=== PATIENT | female | born 1950 | race Two or more races ===

== ENCOUNTER 2017-06-03 02:05 | Inpatient (IN) | payer MEDICARE, OTHER ==
[~2017-06-03] VITALS: Ht 162.6 cm; Wt 71.7 kg
[~2017-06-03 02:05] MED LIST: IMIP25TA6 PO; LISI10TA5 PO; METF10002 PO; ROBITUSSIN DM PO
--- NOTE | 2017-06-03 02:20 | NUR ---
PATIENT BIB WITH C/O FEELING DEPRESSED AND CRYING. PATIENT IS NON-BURMESE SPEAKING, TRANSLATES. PATIENT DENIES HOMICIDAL/SUICIDAL IDEATION AT THIS TIME.
--- NOTE | 2017-06-03 02:24 | NUR ---
DR. YOUNG AT BEDSIDE FOR MSE.
[2017-06-03] MEDS ORDERED: ASPI-605 PO (02:25)
[2017-06-03] MEDS ORDERED: PANT40TA4 PO (02:25)
[2017-06-03] MEDS ORDERED: FURO20TA4 PO (02:25)
[2017-06-03] MEDS ORDERED: CARV3.122 PO (02:25)
[2017-06-03] MEDS ORDERED: SAXA5TAB PO (02:25)
[2017-06-03 02:56] LABS: CARBON DIOXIDE 23 mmol/L (21-32); CREATININE 1.3 mg/dL (0.6-1.3); GLUCOSE 243 mg/dL (74-106); POTASSIUM 4.1 mmol/L (3.5-5.1); UREA NITROGEN, BLOOD 26 mg/dL (7-18)
[2017-06-03 02:57] LABS: ETHANOL < 3 MG/DL (0-0)
[2017-06-03 02:58] LABS: CHLORIDE 80 mmol/L (98-107)
[2017-06-03] MEDS ORDERED: IV NORMAL SALINE 500 ML BAG IV ONE (03:00)
[2017-06-03 03:01] LABS: ALANINE AMINOTRANSFERASE 395 U/L (14-59); ALKALINE PHOSPHATASE 238 U/L (50-136); ASPARTATE AMINOTRANSFERASE 65 U/L (15-37); BILIRUBIN,DIRECT 0.5 mg/dL (0.0-0.2); BILIRUBIN,TOTAL 1.2 mg/dL (0.2-1.0); TOTAL PROTEIN, SERUM 6.8 g/dL (6.4-8.2)
[2017-06-03 03:02] LABS: ACETAMINOPHEN < 2.0 ug/mL (10-30)
--- NOTE | 2017-06-03 03:05 | NUR ---
Pt. admitted to [facility] , under care of Sera DOBBS List completed. ASSIGNED TO BED 226.
[2017-06-03 03:10] LABS: BASOPHILS # (AUTO) 0.1 K/uL (0.0-8.0); EOSINOPHILS # (AUTO) 0.3 K/uL (0.0-0.7)
[2017-06-03 03:12] LABS: HEMOGLOBIN 11.3 G/DL (12.0-16.0)
[2017-06-03 03:13] LABS: BASOPHILS % (AUTO) 0.9 % (0.0-2.0); EOSINOPHILS % (AUTO) 3.1 % (0.0-7.0); HEMATOCRIT 34.7 % (37-47); LYMPHOCYTES # (AUTO) 1.7 K/UL (0.8-4.8); LYMPHOCYTES % (AUTO) 17.8 % (20.5-51.5); MEAN CORPUSCULAR HEMOGLOBIN 26.2 UUG (27.0-31.0); MEAN CORPUSCULAR HGB CONC 33 g/dL (32.0-37.0); MEAN CORPUSCULAR VOLUME 80.5 FL (81.0-99.0); MONOCYTES # (AUTO) 0.8 K/UL (0.1-1.30); MONOCYTES % (AUTO) 8.7 % (0.0-11.0); NEUTROPHILS # (AUTO) 6.7 K/UL (1.8-8.9); NEUTROPHILS % (AUTO) 69.5 % (38.5-71.5); PLATELET COUNT (AUTO) 380 K/UL (150-450); RED BLOOD CELL COUNT(AUTO) 4.31 MIL/UL (4.2-5.4); WHITE BLOOD COUNT (AUTO) 9.6 K/UL (4.0-11.2)
[2017-06-03] MEDS ORDERED: ONDANSETRON 4 MG/2 ML VIAL IV PRN (03:45)
[2017-06-03] MEDS ORDERED: IV NS 1000 ML 1,000 ML IV ONE (03:45)
[2017-06-03] MEDS ORDERED: Z GUARD REMEDY PASTE 57 GM TUBE TOP PRN (03:45)
[2017-06-03] MEDS ORDERED: HYDROCODONE/APAP 5-325MG TABLET PO PRN (03:45)
[2017-06-03] MEDS ORDERED: MAGNESIUM HYDROXIDE 30 ML LIQUID UDC PO PRN (03:45)
[2017-06-03] MEDS ORDERED: ACETAMINOPHEN 325 MG TABLET PO PRN (03:45)
--- NOTE | 2017-06-03 04:45 | NUR ---
ADMITTED IN TELE UNIT UNDER SHERYL KHAN NP, BELONGING LIST DONE.
[2017-06-03 05:09] VITALS: BP 116/64
[2017-06-03] MEDS ORDERED: HYDROCODONE/APAP 5-325MG TABLET ONE (06:04)
[2017-06-03 07:15] LABS: *BLOOD, URINE NEGATIVE (NEGATIVE); *CLARITY,URINE CLEAR (CLEAR); *COLOR,URINE YELLOW (YELLOW); *KETONES,URINE NEGATIVE (NEGATIVE); *PROTEIN,URINE 1+ (NEGATIVE); LEUKOCYTE ESTERASE ,URINE 3+ (NEGATIVE); NITRITE, URINE NEGATIVE (NEGATIVE); PH,URINE 5.5 (5.0-8.0); UGLUCOSE NEGATIVE (NEGATIVE)
[2017-06-03 07:32] LABS: *BILIRUBIN,URIN 1+ (NEGATIVE)
[2017-06-03 07:33] LABS: *AMPHETAMINE, URINE NEGATIVE (NEGATIVE); *BARBITURATE, URINE NEGATIVE (NEGATIVE); *CANNABINOID, URINE NEGATIVE (NEGATIVE); *COCCAINE, URINE NEGATIVE (NEGATIVE); *OPIATE, URINE NEGATIVE (NEGATIVE); *PHENCYCLIDINE SCREEN,URINE NEGATIVE (NEGATIVE)
[2017-06-03] MEDS: CARVEDILOL 3.125 MG TABLET PO SCH ×3 (08:00→18:16)
[2017-06-03 08:36] LABS: BACTERIA,URINE MODERATE /HPF (NONE SEEN); RBC,URINE 0-3 /HPF (0-3); SQUAMOUS EPITHELIAL CELL,UR MODERATE /HPF (NONE SEEN)
[2017-06-03 08:43] LABS: CREATININE 1.1 mg/dL (0.6-1.3); POTASSIUM 4.9 mmol/L (3.5-5.1)
[2017-06-03] MEDS: LISINOPRIL 10 MG TABLET PO SCH (09:00)
[2017-06-03] MEDS: PANTOPRAZOLE SODIUM 40 MG TABLET.DR PO SCH (09:41)
[2017-06-03] MEDS: ASPIRIN EC 81 MG TABLET.DR PO SCH (09:41)
[2017-06-03 12:04] VITALS: BP 115/74
[2017-06-03] MEDS: FUROSEMIDE 20 MG/2 ML VIAL IV SCH (12:07)
[2017-06-03] MEDS: CEFTRIAXONE 1 G in IV DEXTROSE 5% 50 ML IV SCH (12:16)
[2017-06-03 15:30] VITALS: BP 105/60
[2017-06-03 15:41] LABS: CREATININE 1.3 mg/dL (0.6-1.3); POTASSIUM 4.4 mmol/L (3.5-5.1)
[2017-06-03] MEDS ORDERED: DEXTROSE 50% 50 ML DISP.SYRIN IV PRN (18:00)
[2017-06-03] MEDS: BLOOD SUGAR DIAGNOSTIC 1 EACH STRIP VI SCH ×2 (18:15→22:53)
[2017-06-03] MEDS: INSULIN REGULAR, HUMAN 300 UNITS/3 ML VIAL SQ PRN (18:26)
--- NOTE | 2017-06-03 19:00 | NUR ---
Pt in room with at bedside alert and oriented x4. No s/s of acute distress. Able to ambulate with standby assistance. No c/o pain, headaches, or shortness of breathe. No s/s of hyper/hypoglycemia at this time. Call light placed within reach. Sinus rhythm with bundle branch.
--- NOTE | 2017-06-03 19:07 | NUR ---
PT. AMBULATING IN HALLWAY WITH SPOUSE THROUGHOUT THE DAY. SPOUSE REQUESTED PSYCH CONSULT DUE TO RECENT INCREASE IN DEPRESSION. PT. TOLERATED MEALS WELL. ACCU-CHECKS INITIATED AT DINNER TIME. SPOKE WITH DAUGHTER PER TELEPHONE REGARDING CARE PLAN. DR. DICKSON AWARE OF PSYCH CONSULT REQUEST. PT. IN NO ACUTE DISTRESS.
[2017-06-03 20:00] VITALS: BP 120/74
[2017-06-04] VITALS: BP 107/75
--- NOTE | 2017-06-04 01:00 | NUR ---
Pt asleep in room at this time. No s/s of acute distress. Sinus rhythm with wide QRS. at bedside. Continue to monitor.
[2017-06-04 04:00] VITALS: BP 114/74
[2017-06-04] MEDS: PANTOPRAZOLE SODIUM 40 MG TABLET.DR PO SCH (06:24)
[2017-06-04 06:42] LABS: CREATININE 1.1 mg/dL (0.6-1.3); MAGNESIUM 1.5 mg/dL (1.8-2.4); PHOSPHOROUS 3.6 mg/dL (2.5-4.9); TOTAL PROTEIN, SERUM 6.8 g/dL (6.4-8.2); URIC ACID 9.5 mg/dL (2.6-6.0)
[2017-06-04 06:43] LABS: THYROID STIMULATING HORMONE 5.779 mIU/mL (0.358-3.740)
[2017-06-04 07:20] LABS: BASOPHILS # (AUTO) 0.1 K/uL (0.0-8.0); EOSINOPHILS # (AUTO) 0.3 K/uL (0.0-0.7); HEMOGLOBIN 11.4 g/dL (10.9-14.3); LYMPHOCYTES # (AUTO) 1.9 K/uL (20.0-40.0); NEUTROPHILS # (AUTO) 2.6 K/uL (1.8-8.9)
[2017-06-04 07:26] LABS: BASOPHILS % (AUTO) 2.1 % (0.0-2.0); EOSINOPHILS % (AUTO) 5.7 % (0.0-7.0); HEMATOCRIT 34.1 % (31.2-41.9); LYMPHOCYTES % (AUTO) 33.8 % (20.5-51.5); MEAN CORPUSCULAR HEMOGLOBIN 26.8 uug (24.7-32.8); MEAN CORPUSCULAR HGB CONC 34 g/dL (32.3-35.6); MONOCYTES # (AUTO) 0.7 K/uL (2.0-10.0); MONOCYTES % (AUTO) 12.3 % (0.0-11.0); NEUTROPHILS % (AUTO) 46.1 % (38.5-71.5); PLATELET COUNT (AUTO) 293 K/uL (179-408); RED BLOOD CELL COUNT(AUTO) 4.27 MIL/uL (3.63-4.92)
[2017-06-04 07:29] LABS: WHITE BLOOD COUNT (AUTO) 5.7 K/uL (3.8-11.8)
[2017-06-04 10:00] VITALS: BP 124/84
[2017-06-04] MEDS: ASPIRIN EC 81 MG TABLET.DR PO SCH (10:31)
[2017-06-04] MEDS: CEFTRIAXONE 1 G in IV DEXTROSE 5% 50 ML IV SCH (10:31)
[2017-06-04] MEDS: LISINOPRIL 10 MG TABLET PO SCH (10:31)
[2017-06-04] MEDS: FUROSEMIDE 20 MG/2 ML VIAL IV SCH ×2 (10:31→22:27)
[2017-06-04] MEDS: CARVEDILOL 3.125 MG TABLET PO SCH ×2 (10:32→22:22)
[2017-06-04] MEDS: BLOOD SUGAR DIAGNOSTIC 1 EACH STRIP VI SCH ×3 (11:30→22:31)
[2017-06-04] MEDS: ALLOPURINOL 300 MG TABLET PO SCH ×2 (12:00→12:12)
[2017-06-04 12:08] VITALS: BP 135/78
[2017-06-04] MEDS: INSULIN REGULAR, HUMAN 300 UNIT/3 ML VIAL SQ PRN ×2 (12:31→16:47)
[2017-06-04 16:46] VITALS: BP 126/69
--- NOTE | 2017-06-04 18:12 | NUR ---
Family at bs, states no dr has spoken to them. No acute distress noted or voiced
[2017-06-04] MEDS: MAGNESIUM SULFATE/D5W 100 ML IV SCH (18:39)
[2017-06-04 19:30] VITALS: BP 113/69
--- NOTE | 2017-06-04 19:30 | NUR ---
RECEIVED PATIENT IN BED, ALERT ORIENTED, PREFER TO KEEP HOB ELEVATED, NO COMPLAIN OF PAIN NOTED, VOIDING FREELY, STATE "SHE FEELS BETTER".CONT TO MONITOR.
[2017-06-04] MEDS: TRAZODONE 50 MG TABLET PO SCH (22:22)
[2017-06-04] MEDS: INSULIN REGULAR, HUMAN 300 UNITS/3 ML VIAL SQ PRN (22:32)
[2017-06-04] MEDS ORDERED: FUROSEMIDE 20 MG/2 ML VIAL ONE (22:34)
[2017-06-05] MEDS: MAGNESIUM SULFATE/D5W 100 ML IV SCH (00:44)
[2017-06-05] MEDS ORDERED: MAGNESIUM SULFATE/D5W 100 ML ONE (00:55)
[2017-06-05 05:10] VITALS: BP 114/87
[2017-06-05] MEDS: PANTOPRAZOLE SODIUM 40 MG TABLET.DR PO SCH (06:17)
[2017-06-05] MEDS: BLOOD SUGAR DIAGNOSTIC 1 EACH STRIP VI SCH ×4 (06:29→21:06)
--- NOTE | 2017-06-05 06:58 | NUR ---
PATIENT SLEPT MOST OF THE NIGHT, VOIDING WELL, NO SOB NO CHEST PAIN NOTED, SWELLING OF LOWER EXTREMETY STILL PRESENT, SEEN BY TABLET REPAIR, WITH ORDER, SEEN BY DR. BETTENCOURT WITH ORDER, CONT TO MONITOR.
[2017-06-05] MEDS: SPIRONOLACTONE 25 MG TABLET PO SCH (09:17)
[2017-06-05] MEDS: ASPIRIN EC 81 MG TABLET.DR PO SCH (09:21)
[2017-06-05] MEDS: ALLOPURINOL 300 MG TABLET PO SCH (09:21)
[2017-06-05] MEDS: CARVEDILOL 3.125 MG TABLET PO SCH ×2 (09:22→20:00)
[2017-06-05] MEDS: SERTRALINE HCL 50 MG TABLET PO SCH (09:23)
[2017-06-05] MEDS: LISINOPRIL 10 MG TABLET PO SCH (09:23)
[2017-06-05] MEDS: FUROSEMIDE 20 MG/2 ML VIAL IV SCH ×2 (09:24→16:51)
[2017-06-05] MEDS: CEFTRIAXONE 1 G in IV DEXTROSE 5% 50 ML IV SCH (10:11)
[2017-06-05 11:18] VITALS: BP 116/73
[2017-06-05] MEDS ORDERED: MAGNESIUM CITRATE 296 ML BOTTLE PO ONE (11:45)
[2017-06-05] MEDS: INSULIN REGULAR, HUMAN 300 UNIT/3 ML VIAL SQ PRN (12:23)
[2017-06-05 15:10] VITALS: BP 108/71
[2017-06-05] MEDS: INSULIN REGULAR, HUMAN 300 UNITS/3 ML VIAL SQ PRN ×2 (17:29→21:14)
--- NOTE | 2017-06-05 19:35 | NUR ---
PATIENT UP, AMBULATE IN THE HALLWAYS ACCOMPANIED BY , NO SOB NO CHEST PAIN, NO COMPLAIN OF PAIN AT THIS TIME, PATIENT SEEMS HAS MORE ENERGY THIS EVENING, CONT TO MONITOR.
[2017-06-05 20:00] VITALS: BP 104/63
[2017-06-05] MEDS: TRAZODONE 50 MG TABLET PO SCH (21:05)
--- NOTE | 2017-06-05 21:16 | NUR ---
PATIENT REQUEST TO HOLD BP MEDS, STATED THAT HIS BP WAS LOW THIS MORNING, AND WANTING TO HOLD THE MEDICATION. RESPECT 'S REQUEST.
[2017-06-06 04:00] VITALS: BP 111/71
[2017-06-06] MEDS: PANTOPRAZOLE SODIUM 40 MG TABLET.DR PO SCH (06:05)
[2017-06-06] MEDS: BLOOD SUGAR DIAGNOSTIC 1 EACH STRIP VI SCH ×3 (06:06→21:35)
--- NOTE | 2017-06-06 06:59 | NUR ---
PATIENT AWAKE NO COMPLAIN OF PAIN AT THIS TIME, NO SOB NO CHEST PAIN, NOTED, RHYTHM SINUS RHYTHM AT THIS TIME. NO S/S OF HYPO/HYPERGLYCEMIA NOTED, VOIDING FREELY, HAS BM YESTERDAY PER , CONT TO MONITOR.
[2017-06-06] MEDS: SPIRONOLACTONE 25 MG TABLET PO SCH (10:04)
[2017-06-06] MEDS: FUROSEMIDE 20 MG TABLET PO SCH ×2 (10:04→17:58)
[2017-06-06] MEDS: ASPIRIN EC 81 MG TABLET.DR PO SCH (10:04)
[2017-06-06] MEDS: SERTRALINE HCL 50 MG TABLET PO SCH (10:04)
[2017-06-06] MEDS: ALLOPURINOL 300 MG TABLET PO SCH (10:05)
[2017-06-06] MEDS: CEFTRIAXONE 1 G in IV DEXTROSE 5% 50 ML IV SCH (10:06)
[2017-06-06] MEDS: LISINOPRIL 10 MG TABLET PO SCH (10:07)
[2017-06-06] MEDS: CARVEDILOL 3.125 MG TABLET PO SCH ×2 (10:08→20:00)
[2017-06-06 11:11] VITALS: BP 114/72
[2017-06-06 11:27] LABS: MEAN CORPUSCULAR VOLUME 79.7 FL (81.0-99.0)
[2017-06-06 11:29] LABS: BASOPHILS # (AUTO) 0.1 K/uL (0.0-8.0); BASOPHILS % (AUTO) 1.5 % (0.0-2.0); EOSINOPHILS # (AUTO) 0.3 K/uL (0.0-0.7); EOSINOPHILS % (AUTO) 4.2 % (0.0-7.0); HEMATOCRIT 32.9 % (37-47); HEMOGLOBIN 10.8 G/DL (12.0-16.0); LYMPHOCYTES # (AUTO) 1.4 K/UL (0.8-4.8); LYMPHOCYTES % (AUTO) 23.4 % (20.5-51.5); MEAN CORPUSCULAR HEMOGLOBIN 26.1 UUG (27.0-31.0); MEAN CORPUSCULAR HGB CONC 33 g/dL (32.0-37.0); MONOCYTES # (AUTO) 0.9 K/UL (0.1-1.30); MONOCYTES % (AUTO) 14.8 % (0.0-11.0); NEUTROPHILS # (AUTO) 3.5 K/UL (1.8-8.9); NEUTROPHILS % (AUTO) 56.1 % (38.5-71.5); PLATELET COUNT (AUTO) 349 K/UL (150-450); RED BLOOD CELL COUNT(AUTO) 4.13 MIL/UL (4.2-5.4); WHITE BLOOD COUNT (AUTO) 6.2 K/UL (4.0-11.2)
[2017-06-06 11:36] LABS: CREATININE 1.1 mg/dL (0.6-1.3); POTASSIUM 4.4 mmol/L (3.5-5.1)
[2017-06-06 11:41] LABS: BILIRUBIN,TOTAL 0.8 mg/dL (0.2-1.0); MAGNESIUM 1.6 mg/dL (1.8-2.4); TOTAL PROTEIN, SERUM 6.5 g/dL (6.4-8.2)
[2017-06-06] MEDS: INSULIN REGULAR, HUMAN 300 UNIT/3 ML VIAL SQ PRN ×2 (11:56→18:03)
--- NOTE | 2017-06-06 12:23 | NUR ---
08:00 PT RECEIVED IN ROOM NO DISTRESS AOX3 FOLLOWS COMMANDS AND DENIES PAIN. VSS. CONTINUES WITH ABT'S. 1130 TELE DISCONTINUED PER ORDER
[2017-06-06] MEDS: MAGNESIUM SULFATE/D5W 100 ML IV SCH ×4 (12:54→15:24)
[2017-06-06 15:16] VITALS: BP 95/58
--- NOTE | 2017-06-06 18:34 | NUR ---
18:30 PT RESTING WELL GIVEN MAG ORDERED. AOX3 AMBULATORY/ DENIES PAIN. URINE SPECIMEN COLLECTED. WILL CONTINUE TO MONITOR.
--- NOTE | 2017-06-06 19:30 | NUR ---
Received patient sitting on bed. No complaints of pain at this time. Son at bedside. Call light within reach. Will continue to monitor.
[2017-06-06 20:13] VITALS: BP 105/68
[2017-06-06] MEDS: TRAZODONE 50 MG TABLET PO SCH (21:17)
--- NOTE | 2017-06-06 23:55 | NUR ---
Patient complains of mild generalized pain. Requested Tylenol. Given as ordered. VS checked, WNL. Snacks provided as requested. Will continue to monitor.
[2017-06-07 06:54] VITALS: BP 103/66
[2017-06-07] MEDS: BLOOD SUGAR DIAGNOSTIC 1 EACH STRIP VI SCH ×3 (07:23→10:46)
[2017-06-07] MEDS: PANTOPRAZOLE SODIUM 40 MG TABLET.DR PO SCH (07:26)
[2017-06-07] MEDS: glipiZIDE 5 MG TABLET PO SCH ×2 (07:30→11:00)
--- NOTE | 2017-06-07 07:30 | NUR ---
RECEIVED PATIENT IN BED, ALERT ORIENTED, PREFER TO KEEP HOB ELEVATED, NO COMPLAIN OF PAIN NOTED, CALL LIGHT WITH IN REACH
--- NOTE | 2017-06-07 07:37 | NUR ---
Patient awake sitting on bed. BS taken at 0730-122. requests to hold BP and BS meds this morning. Relayed to day shift nurse. Due meds given. No s/s of acute distress. Frequent checks done. Call light within reach. Kept comfortable. Needs attended. Endorsed accordingly.
[2017-06-07] MEDS: CARVEDILOL 3.125 MG TABLET PO SCH (07:47)
[2017-06-07] MEDS: METFORMIN HCL 500 MG TABLET PO SCH ×2 (07:48→11:00)
[2017-06-07] MEDS: SERTRALINE HCL 50 MG TABLET PO SCH (08:02)
[2017-06-07] MEDS: ASPIRIN EC 81 MG TABLET.DR PO SCH (08:02)
[2017-06-07] MEDS: FUROSEMIDE 20 MG TABLET PO SCH (08:02)
[2017-06-07] MEDS: ALLOPURINOL 300 MG TABLET PO SCH (08:02)
[2017-06-07] MEDS: SPIRONOLACTONE 25 MG TABLET PO SCH (08:02)
[2017-06-07] MEDS: LISINOPRIL 10 MG TABLET PO SCH (08:03)
[2017-06-07] MEDS: CEFTRIAXONE 1 G in IV DEXTROSE 5% 50 ML IV SCH (08:23)
[2017-06-07 09:08] LABS: BILIRUBIN,TOTAL 0.9 mg/dL (0.2-1.0); CREATININE 1.2 mg/dL (0.6-1.3); MAGNESIUM 2.3 mg/dL (1.8-2.4); PHOSPHOROUS 3.9 mg/dL (2.5-4.9); POTASSIUM 4.4 mmol/L (3.5-5.1)
[2017-06-07 10:23] LABS: BASOPHILS % (AUTO) 0.1 % (0.0-2.0); EOSINOPHILS % (AUTO) 0.4 % (0.0-7.0); HEMATOCRIT 33.8 % (37-47); HEMOGLOBIN 10.9 G/DL (12.0-16.0); LYMPHOCYTES # (AUTO) 0.9 K/UL (0.8-4.8); LYMPHOCYTES % (AUTO) 9.8 % (20.5-51.5); MEAN CORPUSCULAR HEMOGLOBIN 26.1 UUG (27.0-31.0); MEAN CORPUSCULAR HGB CONC 32 g/dL (32.0-37.0); MEAN CORPUSCULAR VOLUME 80.9 FL (81.0-99.0); MONOCYTES # (AUTO) 0.7 K/UL (0.1-1.30); MONOCYTES % (AUTO) 7.5 % (0.0-11.0); NEUTROPHILS % (AUTO) 82.2 % (38.5-71.5); PLATELET COUNT (AUTO) 321 K/UL (150-450); RED BLOOD CELL COUNT(AUTO) 4.17 MIL/UL (4.2-5.4); WHITE BLOOD COUNT (AUTO) 9.6 K/UL (4.0-11.2)
[2017-06-07 10:56] LABS: *BILIRUBIN,URIN NEGATIVE (NEGATIVE); *BLOOD, URINE NEGATIVE (NEGATIVE); *CLARITY,URINE CLEAR (CLEAR); *COLOR,URINE YELLOW (YELLOW); *KETONES,URINE NEGATIVE (NEGATIVE); *PROTEIN,URINE NEGATIVE (NEGATIVE); *UROBILINOGEN,URINE 0.2 E.U./dl (NORMAL); LEUKOCYTE ESTERASE ,URINE NEGATIVE (NEGATIVE); NITRITE, URINE NEGATIVE (NEGATIVE); PH,URINE 5.5 (5.0-8.0)
[2017-06-07] MEDS: INSULIN REGULAR, HUMAN 300 UNIT/3 ML VIAL SQ PRN (11:04)
[2017-06-07 11:44] LABS: UGLUCOSE 1+ (NEGATIVE)
[2017-06-07] MEDS ORDERED: INFLUENZA VACCINE 2017-2018 0.5 ML DISP.SYRIN IM ONE (12:00)
[2017-06-07 12:04] LABS: BACTERIA,URINE FEW /HPF (NONE SEEN); RBC,URINE 0-3 /HPF (0-3); SQUAMOUS EPITHELIAL CELL,UR MODERATE /HPF (NONE SEEN); WBC,URINE 0-3 /HPF (0-3)
[2017-06-07 12:08] VITALS: BP 114/75
[2017-06-07 13:39] LABS: BAND % (MANUAL) 8 % (0-10); EOSINOPHILS % (MANUAL) 1 % (0-8); LYMPHOCYTES % (MANUAL) 7 % (20-40); MONOCYTES % (MANUAL) 3 % (2-10); NEUTROPHILS % (MANUAL) 81 % (42-75)
[2017-06-07] MEDS ORDERED: FURO20TA4 PO (15:43)
[2017-06-07] MEDS ORDERED: ALLO300T2 PO (15:43)
[2017-06-07] MEDS ORDERED: SPIR25TA PO (15:43)
[2017-06-07] MEDS ORDERED: TRAZ-144 PO (15:43)
[2017-06-07] MEDS ORDERED: LISI10TA5 PO (15:43)
[2017-06-07] MEDS ORDERED: SERT50TA12 PO (15:43)
[2017-06-07] MEDS ORDERED: CARV3.122 PO (15:43)
[2017-06-07 16:04] VITALS: BP 100/66
--- NOTE | 2017-06-07 16:12 | NUR ---
D/C ORDERS RECEIVED NOTED AND CARRIED OUT.D/C INSTRUCTIONS AND EDUCATIONS GIVEN TO THE PT.D/C HE[place]OCK PER MD ORDERS.PT LEFT THE FACILITY VIA PRIVATE CAR IN STABLE CONDITIONS.
== END 2017-06-07 16:15 | disposition home health service (06) | DRG 291 ==
LOC: ER 02:13 → TELE 03:05 → MED 06-06 11:55
PROVIDERS: ADMIT Nurse Practitioner Acute Care; ATTEND Internal Medicine
DX: I11.0 Hypertensive heart disease with heart failure (principal); G93.40 Encephalopathy, unspecified; N17.0 Acute kidney failure with tubular necrosis; E86.1 Hypovolemia; J90 Pleural effusion, not elsewhere classified; D68.59 Other primary thrombophilia; E11.65 Type 2 diabetes mellitus with hyperglycemia; E87.1 Hypo-osmolality and hyponatremia; N39.0 Urinary tract infection, site not specified; I50.23 Acute on chronic systolic (congestive) heart failure; I42.9 Cardiomyopathy, unspecified; I36.1 Nonrheumatic tricuspid (valve) insufficiency; Z85.3 Personal history of malignant neoplasm of breast; Z90.11 Acquired absence of right breast and nipple; I34.0 Nonrheumatic mitral (valve) insufficiency; I35.1 Nonrheumatic aortic (valve) insufficiency; R74.0 Nonspecific elevation of levels of transaminase and lactic acid dehydrogenase [LDH]; K56.41 Fecal impaction; F32.9 Major depressive disorder, single episode, unspecified; K76.1 Chronic passive congestion of liver; Z79.84 Long term (current) use of oral hypoglycemic drugs; Z79.899 Other long term (current) drug therapy; D50.9 Iron deficiency anemia, unspecified; I27.20 Pulmonary hypertension, unspecified; R53.1 Weakness
CPT/HCPCS: 36415; 70450; 71010; 71250; 80307; 82378; 83550; 83735; 84100; 84300; 84443; 84550; 85025; 87086; 90686; 93005; 93307; A4663; G0480; G0480-TC; J0696; J1815; J1940; J3475; J7030; J7050; J7060

== ENCOUNTER 2017-09-01 07:27 | Emergency (ER) | END 2017-09-01 08:25 | disposition home or self-care (01) | DX: R04.0 Epistaxis (principal); I10 Essential (primary) hypertension; E11.9 Type 2 diabetes mellitus without complications ==

== ENCOUNTER 2017-09-28 20:11 | Inpatient (IN) | payer MEDICARE, OTHER ==
[~2017-09-28] VITALS: Ht 157.5 cm; Wt 52.6 kg
[~2017-09-28 20:11] MED LIST changes: +ALLO300T2 PO; +ASPI-605 PO; +CARV3.122 PO; +FURO20TA4 PO; -IMIP25TA6 PO; +PANT40TA4 PO; -ROBITUSSIN DM PO; +SAXA5TAB PO; +SERT50TA12 PO; +SPIR25TA PO; +TRAZ-144 PO
[2017-09-28] MEDS ORDERED: SIMBRINZA (20:44)
[2017-09-28] MEDS ORDERED: EYE (20:44)
[2017-09-28] MEDS ORDERED: LATANOPROST 0.005% (20:44)
[2017-09-28 21:33] LABS: POTASSIUM 4.7 mmol/L (3.5-5.1)
[2017-09-28 21:38] LABS: BILIRUBIN,DIRECT 0.3 mg/dL (0.0-0.2); BILIRUBIN,TOTAL 0.9 mg/dL (0.2-1.0); TOTAL PROTEIN, SERUM 7.5 g/dL (6.4-8.2)
[2017-09-28 21:41] LABS: BASOPHILS # (AUTO) 0.1 K/uL (0.0-8.0); EOSINOPHILS # (AUTO) 0.4 K/uL (0.0-0.7); MEAN CORPUSCULAR VOLUME 66.7 fL (75.5-95.3); MONOCYTES # (AUTO) 0.9 K/uL (2.0-10.0); NEUTROPHILS # (AUTO) 4.7 K/uL (1.8-8.9)
[2017-09-28 21:43] LABS: BASOPHILS % (AUTO) 1.2 % (0.0-2.0); EOSINOPHILS % (AUTO) 5.4 % (0.0-7.0); HEMATOCRIT 22.8 % (31.2-41.9); LYMPHOCYTES # (AUTO) 1.3 K/uL (20.0-40.0); LYMPHOCYTES % (AUTO) 17.8 % (20.5-51.5); MEAN CORPUSCULAR HEMOGLOBIN 20.3 uug (24.7-32.8); MEAN CORPUSCULAR HGB CONC 30 g/dL (32.3-35.6); MONOCYTES % (AUTO) 11.6 % (0.0-11.0); PLATELET COUNT (AUTO) 346 K/uL (179-408); RED BLOOD CELL COUNT(AUTO) 3.41 MIL/uL (3.63-4.92); WHITE BLOOD COUNT (AUTO) 7.4 K/uL (3.8-11.8)
[2017-09-28 22:16] LABS: HEMOGLOBIN 6.9 g/dL (10.9-14.3)
[2017-09-28 22:17] LABS: NEUTROPHILS % (MANUAL) 0 % (42-75)
--- NOTE | 2017-09-28 23:08 | NUR ---
Passed report to JUDY Caldera
[2017-09-28] MEDS ORDERED: PANTOPRAZOLE SODIUM 40 MG VIAL IV ONE (23:15)
[2017-09-28 23:20] LABS: *BILIRUBIN,URIN NEGATIVE (NEGATIVE); *BLOOD, URINE NEGATIVE (NEGATIVE); *CLARITY,URINE CLEAR (CLEAR); *COLOR,URINE YELLOW (YELLOW); *KETONES,URINE NEGATIVE (NEGATIVE); *PROTEIN,URINE NEGATIVE (NEGATIVE); LEUKOCYTE ESTERASE ,URINE 1+ (NEGATIVE); NITRITE, URINE NEGATIVE (NEGATIVE); PH,URINE 6.5 (5.0-8.0); UGLUCOSE NEGATIVE (NEGATIVE)
[2017-09-28 23:29] LABS: BACTERIA,URINE FEW /HPF (NONE SEEN); RBC,URINE 0-3 /HPF (0-3); SQUAMOUS EPITHELIAL CELL,UR MODERATE /HPF (NONE SEEN)
[2017-09-28] MEDS ORDERED: PANTOPRAZOLE SODIUM 40 MG VIAL ONE (23:31)
[2017-09-29] VITALS (18 sets, daily range): BP systolic 100–173; BP diastolic 42–98
[2017-09-29] MEDS ORDERED: ALBUTEROL SULFATE 2.5 MG/3 ML NEBU NEB PRN
[2017-09-29] MEDS ORDERED: ACETAMINOPHEN 325 MG TABLET PO PRN
[2017-09-29] MEDS ORDERED: MORPHINE SULFATE 2 MG/1 ML DISP.SYRIN IV PRN
[2017-09-29] MEDS ORDERED: ONDANSETRON 4 MG/2 ML VIAL IV PRN
--- NOTE | 2017-09-29 00:15 | NUR ---
RECEIVED PT FROM ER BY A WHEELCHAIR. PT IS AWAKE , ALERT ORIENTEDX4. PT ADMITTED TO TELE. BELONGING LIST DONE. ADMISSION PROCESS AND CARE PLAN INITIATED, NEW ADMISSION. SAFETY AND COMFORT PROVIDED. CALL LIGHT WITHIN REACH. WILL CONTINUE TO MONITOR.
--- NOTE | 2017-09-29 06:46 | NUR ---
PT WAS GIVEN 1 UNIT OF BLOOD. PT TOLERATED THE TRANSFUSION. PT SHOWS NO SIGNS OF DISTRESS. ON BEDSIDE. SAFETY AND COMFORT PROVIDED.
[2017-09-29] MEDS: PANTOPRAZOLE SODIUM 40 MG TABLET.DR PO SCH (07:00)
--- NOTE | 2017-09-29 07:18 | NUR ---
ENDORSE TO NEXT SHIFT NURSE FOR THE 1 UNIT OF BLOOD. IT IS BECAUSE WE NEED TO CHANGE THE IV SITE TO LEFT ARM 20G. PT SHOWS NO SIGNS OF DISTRESS.
[2017-09-29] MEDS ORDERED: MORPHINE SULFATE 4 MG/1 ML DISP.SYRIN IV PRN (07:30)
[2017-09-29] MEDS: FUROSEMIDE 20 MG/2 ML VIAL IV SCH (09:16)
[2017-09-29 09:52] LABS: BILIRUBIN,TOTAL 1.2 mg/dL (0.2-1.0); CREATININE 0.7 mg/dL (0.6-1.3); MAGNESIUM 1.8 mg/dL (1.8-2.4); PHOSPHOROUS 3.2 mg/dL (2.5-4.9); POTASSIUM 3.7 mmol/L (3.5-5.1); TOTAL PROTEIN, SERUM 6.5 g/dL (6.4-8.2)
[2017-09-29 09:53] LABS: THYROID STIMULATING HORMONE 7.451 mIU/mL (0.358-3.740)
[2017-09-29 09:56] LABS: BASOPHILS # (AUTO) 0.1 K/uL (0.0-8.0); BASOPHILS % (AUTO) 1.7 % (0.0-2.0); EOSINOPHILS # (AUTO) 0.3 K/uL (0.0-0.7); EOSINOPHILS % (AUTO) 6.5 % (0.0-7.0); LYMPHOCYTES % (AUTO) 18.1 % (20.5-51.5); MEAN CORPUSCULAR HEMOGLOBIN 21.8 uug (24.7-32.8); MEAN CORPUSCULAR HGB CONC 31 g/dL (32.3-35.6); MEAN CORPUSCULAR VOLUME 70.2 fL (75.5-95.3); MONOCYTES # (AUTO) 0.6 K/uL (2.0-10.0); MONOCYTES % (AUTO) 11.8 % (0.0-11.0); NEUTROPHILS # (AUTO) 3.3 K/uL (1.8-8.9); NEUTROPHILS % (AUTO) 61.9 % (38.5-71.5); PLATELET COUNT (AUTO) 299 K/uL (179-408); RED BLOOD CELL COUNT(AUTO) 3.71 MIL/uL (3.63-4.92); WHITE BLOOD COUNT (AUTO) 5.3 K/uL (3.8-11.8)
[2017-09-29 10:01] LABS: HEMOGLOBIN 8.1 g/dL (10.9-14.3)
[2017-09-29 12:44] LABS: BAND % (MANUAL) 2 % (0-10); BASOPHILS % (MANUAL) 1 % (0-2); EOSINOPHILS % (MANUAL) 7 % (0-8); LYMPHOCYTES % (MANUAL) 19 % (20-40); MONOCYTES % (MANUAL) 10 % (2-10); NEUTROPHILS % (MANUAL) 61 % (42-75)
[2017-09-29] MEDS ORDERED: DEXTROSE 50% 50 ML DISP.SYRIN IV PRN (13:15)
--- NOTE | 2017-09-29 13:39 | NUR ---
PT GIVEN SECOND UNIT OF BLOOD, NO REACTION TO SECOND UNIT. PT VITALS STABLE. NO SIGNS OF RESPIRATORY DISTRESS.
[2017-09-29] MEDS ORDERED: FUROSEMIDE 20 MG/2 ML VIAL IV ONE (14:15)
[2017-09-29] MEDS: CEFTRIAXONE 1 G in IV DEXTROSE 5% 50 ML IV SCH (14:26)
[2017-09-29 15:27] LABS: BASOPHILS # (AUTO) 0.1 K/uL (0.0-8.0); BASOPHILS % (AUTO) 1.6 % (0.0-2.0); EOSINOPHILS # (AUTO) 0.4 K/uL (0.0-0.7); EOSINOPHILS % (AUTO) 5.8 % (0.0-7.0); LYMPHOCYTES # (AUTO) 1.1 K/uL (20.0-40.0); LYMPHOCYTES % (AUTO) 16.4 % (20.5-51.5); MEAN CORPUSCULAR HEMOGLOBIN 22.9 uug (24.7-32.8); MEAN CORPUSCULAR HGB CONC 32 g/dL (32.3-35.6); MEAN CORPUSCULAR VOLUME 72.2 fL (75.5-95.3); MONOCYTES # (AUTO) 0.8 K/uL (2.0-10.0); MONOCYTES % (AUTO) 11.5 % (0.0-11.0); NEUTROPHILS # (AUTO) 4.4 K/uL (1.8-8.9); NEUTROPHILS % (AUTO) 64.7 % (38.5-71.5); PLATELET COUNT (AUTO) 322 K/uL (179-408); RED BLOOD CELL COUNT(AUTO) 4.64 MIL/uL (3.63-4.92); WHITE BLOOD COUNT (AUTO) 6.8 K/uL (3.8-11.8)
[2017-09-29 15:31] LABS: HEMOGLOBIN 10.6 g/dL (10.9-14.3)
[2017-09-29 15:32] LABS: HEMATOCRIT 33.5 % (31.2-41.9)
[2017-09-29] MEDS ORDERED: CARVEDILOL 3.125 MG TABLET PO SCH (16:30)
[2017-09-29] MEDS: BLOOD SUGAR DIAGNOSTIC 1 EACH STRIP VI SCH ×2 (16:47→21:18)
[2017-09-29] MEDS ORDERED: FUROSEMIDE 20 MG TABLET PO SCH (17:00)
[2017-09-29] MEDS: CARVEDILOL 6.25 MG TABLET PO SCH ×2 (17:01→17:02)
--- NOTE | 2017-09-29 17:22 | NUR ---
DOUBLE ORDER OF COREG. ONE ONE DOSE GIVEN. THE OTHER HELD.
--- NOTE | 2017-09-29 18:13 | NUR ---
PT OBSERVED RESTING IN BED WITH AT BEDSIDE. NO SIGNS OF RESPIRATORY DISTRESS, VITALS STABLE, PT ON A CLEAR LIQUID DIET. STOOL SAMPLE STILL NEEDED, PT HAS NOT HAD A BM TODAY. IV SITE IS ON LEFT ARM. NO BP,IV, OR BLOOD DRAWS ON THE RIGHT ARM.
[2017-09-29] MEDS: TRAZODONE 50 MG TABLET PO SCH (20:48)
[2017-09-29] MEDS: INSULIN REGULAR, HUMAN 300 UNITS/3 ML VIAL SQ PRN (21:22)
[2017-09-30 04:00] VITALS: BP 125/71
[2017-09-30] MEDS: PANTOPRAZOLE SODIUM 40 MG TABLET.DR PO SCH (06:28)
[2017-09-30] MEDS: BLOOD SUGAR DIAGNOSTIC 1 EACH STRIP VI SCH ×4 (06:34→20:26)
[2017-09-30 06:57] LABS: BASOPHILS # (AUTO) 0.1 K/uL (0.0-8.0); BASOPHILS % (AUTO) 1.4 % (0.0-2.0); EOSINOPHILS # (AUTO) 0.6 K/uL (0.0-0.7); EOSINOPHILS % (AUTO) 7.8 % (0.0-7.0); HEMATOCRIT 32.2 % (31.2-41.9); HEMOGLOBIN 10.4 g/dL (10.9-14.3); LYMPHOCYTES % (AUTO) 12.8 % (20.5-51.5); MEAN CORPUSCULAR HEMOGLOBIN 23.2 uug (24.7-32.8); MEAN CORPUSCULAR HGB CONC 32 g/dL (32.3-35.6); MONOCYTES # (AUTO) 0.9 K/uL (2.0-10.0); MONOCYTES % (AUTO) 11.4 % (0.0-11.0); NEUTROPHILS # (AUTO) 5.1 K/uL (1.8-8.9); NEUTROPHILS % (AUTO) 66.6 % (38.5-71.5); PLATELET COUNT (AUTO) 332 K/uL (179-408); RED BLOOD CELL COUNT(AUTO) 4.47 MIL/uL (3.63-4.92); WHITE BLOOD COUNT (AUTO) 7.6 K/uL (3.8-11.8)
[2017-09-30 07:54] LABS: CREATININE 0.8 mg/dL (0.6-1.3); POTASSIUM 3.5 mmol/L (3.5-5.1)
[2017-09-30] MEDS: CARVEDILOL 6.25 MG TABLET PO SCH ×3 (08:00→18:05)
[2017-09-30] MEDS: SPIRONOLACTONE 25 MG TABLET PO SCH (08:29)
[2017-09-30] MEDS: ALLOPURINOL 300 MG TABLET PO SCH (08:29)
[2017-09-30] MEDS: SERTRALINE HCL 50 MG TABLET PO SCH (08:29)
[2017-09-30] MEDS: LISINOPRIL 5 MG TABLET PO SCH (08:31)
[2017-09-30] MEDS: FUROSEMIDE 20 MG/2 ML VIAL IV SCH (08:33)
--- NOTE | 2017-09-30 08:50 | NUR ---
COREG, ALDACTONE, PRINIVIL HELD, DOUBLE ORDER OF MEDICATIONS. PHARMACY NOTIFIED.
[2017-09-30] MEDS ORDERED: SPIRONOLACTONE 25 MG TABLET PO SCH (09:00)
[2017-09-30] MEDS ORDERED: PANTOPRAZOLE SODIUM 40 MG TABLET.DR PO SCH (09:00)
[2017-09-30] MEDS ORDERED: LISINOPRIL 5 MG TABLET PO SCH (09:00)
[2017-09-30] MEDS ORDERED: LISINOPRIL 10 MG TABLET PO SCH (09:00)
[2017-09-30 11:14] LABS: BAND % (MANUAL) 2 % (0-10); EOSINOPHILS % (MANUAL) 6 % (0-8); LYMPHOCYTES % (MANUAL) 9 % (20-40); MONOCYTES % (MANUAL) 11 % (2-10); NEUTROPHILS % (MANUAL) 72 % (42-75)
[2017-09-30 11:30] VITALS: BP 113/53
[2017-09-30 12:55] LABS: *OCCULT BLOOD STOOL NEGATIVE (NEGATIVE)
[2017-09-30] MEDS: CEFTRIAXONE 1 G in IV DEXTROSE 5% 50 ML IV SCH (14:49)
[2017-09-30 15:30] VITALS: BP 122/71
--- NOTE | 2017-09-30 18:32 | NUR ---
PT STOOL OB WAS NEGATIVE, PT GIVEN SOLID DIABETIC DIET PER CORRECTIONS OFFICER ORDER. PT IS IN BED AWAKE AOX4 FAMILY AT BEDSIDE. PT SHOWS NO SIGNS OF RESPIRATORY DISTRESS. STABLE. CONTINUE TO MONITOR.
--- NOTE | 2017-09-30 19:30 | NUR ---
RECEIVED PT ON BED. AWAKE, ALERT AND ORIENTED X 4. ON BEDSIDE. IV INTACT AND PATENT. SHOWS NO SIGNS OF DISTRESS. CALL LIGHT WITHIN REACH. BED ALARM ON. WILL CONTINUE TO MONITOR.
--- NOTE | 2017-09-30 19:35 | NUR ---
PT CHART SHOWS SUICIDE BUT ITS JUST HUMAN ERROR. DON'T KNOW HOW TO CANCEL AND EDIT IT. PT SHOWS NO SIGNS OF DISTRESS. WILL CONTINUE TO MONITOR.
[2017-09-30 20:00] VITALS: BP 101/54
[2017-09-30] MEDS: TRAZODONE 50 MG TABLET PO SCH (20:25)
[2017-09-30] MEDS: INSULIN REGULAR, HUMAN 300 UNITS/3 ML VIAL SQ PRN (20:32)
--- NOTE | 2017-10-01 06:30 | NUR ---
PT SLEPT THROUGHOUT THE SHIFT. PT SHOWS NO SIGNS OF DISTRESS. ENDORSE TO DAY SHIFT NURSE TO GET THE RECORD FROM [facility] INCLUDING CT SCAN. PT VITAL SIGNS STABLE. PRESCRIBED MEDICATION GIVEN TO PT. PT TOLERATED THE MEDICATION. SAFETY AND COMFORT PROVIDED.
[2017-10-01] MEDS: BLOOD SUGAR DIAGNOSTIC 1 EACH STRIP VI SCH ×4 (06:35→20:19)
[2017-10-01] MEDS: PANTOPRAZOLE SODIUM 40 MG TABLET.DR PO SCH (06:35)
[2017-10-01 06:55] VITALS: BP 118/70
[2017-10-01] MEDS: CARVEDILOL 6.25 MG TABLET PO SCH ×2 (07:05→17:06)
--- NOTE | 2017-10-01 07:43 | NUR ---
RECEIVED PT ON BED. AWAKE, ALERT AND ORIENTED X 4. . IV INTACT AND PATENT. SHOWS NO SIGNS OF DISTRESS. CALL LIGHT WITHIN REACH. BED ALARM ON. WILL CONTINUE TO MONITOR.
[2017-10-01] MEDS: SPIRONOLACTONE 25 MG TABLET PO SCH (08:02)
[2017-10-01] MEDS: ALLOPURINOL 300 MG TABLET PO SCH (08:02)
[2017-10-01] MEDS: SERTRALINE HCL 50 MG TABLET PO SCH (08:02)
[2017-10-01] MEDS: LISINOPRIL 5 MG TABLET PO SCH (08:02)
[2017-10-01] MEDS: FUROSEMIDE 20 MG/2 ML VIAL IV SCH (08:15)
[2017-10-01 11:27] LABS: BASOPHILS # (AUTO) 0.1 K/uL (0.0-8.0); BASOPHILS % (AUTO) 1.6 % (0.0-2.0); EOSINOPHILS # (AUTO) 0.5 K/uL (0.0-0.7); EOSINOPHILS % (AUTO) 6.4 % (0.0-7.0); HEMATOCRIT 31.3 % (31.2-41.9); HEMOGLOBIN 9.9 g/dL (10.9-14.3); LYMPHOCYTES # (AUTO) 0.9 K/uL (20.0-40.0); MEAN CORPUSCULAR HEMOGLOBIN 22.9 uug (24.7-32.8); MEAN CORPUSCULAR HGB CONC 32 g/dL (32.3-35.6); MEAN CORPUSCULAR VOLUME 72.1 fL (75.5-95.3); MONOCYTES # (AUTO) 0.7 K/uL (2.0-10.0); MONOCYTES % (AUTO) 9.3 % (0.0-11.0); NEUTROPHILS # (AUTO) 5.4 K/uL (1.8-8.9); NEUTROPHILS % (AUTO) 70.7 % (38.5-71.5); PLATELET COUNT (AUTO) 337 K/uL (179-408); RED BLOOD CELL COUNT(AUTO) 4.33 MIL/uL (3.63-4.92); WHITE BLOOD COUNT (AUTO) 7.6 K/uL (3.8-11.8)
[2017-10-01] MEDS: INSULIN REGULAR, HUMAN 300 UNIT/3 ML VIAL SQ PRN (11:27)
[2017-10-01 11:42] VITALS: BP 113/62
[2017-10-01] MEDS: CEFTRIAXONE 1 G in IV DEXTROSE 5% 50 ML IV SCH (13:47)
[2017-10-01 15:25] VITALS: BP 106/60
--- NOTE | 2017-10-01 19:15 | NUR ---
RECEIVED PT AWAKE ,ALERT, ORIENTED X4. ON BEDSIDE. WANTS TO SPEAK WITH THE DR IN CHARGE. AT BEDSIDE.IV INTACT AND PATENT.RECENT BLOOD SUGAR TAKEN FROM DAYSHIFT NURSE WAS 73. NEED TO RECHECKED AGAIN . WILL CONTINUE TO MONITOR.
[2017-10-01 19:59] LABS: BAND % (MANUAL) 4 % (0-10); EOSINOPHILS % (MANUAL) 6 % (0-8); LYMPHOCYTES % (MANUAL) 14 % (20-40); MONOCYTES % (MANUAL) 9 % (2-10); NEUTROPHILS % (MANUAL) 67 % (42-75)
[2017-10-01] MEDS: TRAZODONE 50 MG TABLET PO SCH (20:14)
[2017-10-01 20:15] VITALS: BP 118/69
--- NOTE | 2017-10-01 21:00 | NUR ---
BLOOD SUGAR TAKEN WAS 80. NO INSULIN PER SLIDING SCALE. GAVE ORANGE JUICE TO KEEP THE BLOOD SUGAR LEVEL UP. WILL CONTINUE TO MONITOR.
[2017-10-02] MEDS: LEVOFLOXACIN 500 MG TABLET PO SCH (01:48)
[2017-10-02 04:47] VITALS: BP 125/69
[2017-10-02] MEDS: PANTOPRAZOLE SODIUM 40 MG TABLET.DR PO SCH (06:09)
--- NOTE | 2017-10-02 06:19 | NUR ---
PT SLEPT THROUGHOUT THE SHIFT . PT STABLE. IV INTACT AND PATENT. BEDSIDE ALARM ON AND IN LOW POSITION. CALL LIGHT WITHIN REACH. PRESCRIBED MEDICATIONS GIVEN AND TOLERATED. BLOOD SUGAR LEVEL IS 77. SAFETY AND COMFORT PROVIDED.
[2017-10-02 06:28] LABS: BASOPHILS # (AUTO) 0.1 K/uL (0.0-8.0); BASOPHILS % (AUTO) 1.4 % (0.0-2.0); EOSINOPHILS # (AUTO) 0.7 K/uL (0.0-0.7); EOSINOPHILS % (AUTO) 9.6 % (0.0-7.0); HEMATOCRIT 31.6 % (31.2-41.9); HEMOGLOBIN 9.8 g/dL (10.9-14.3); LYMPHOCYTES # (AUTO) 1.1 K/uL (20.0-40.0); LYMPHOCYTES % (AUTO) 14.5 % (20.5-51.5); MEAN CORPUSCULAR HEMOGLOBIN 22.6 uug (24.7-32.8); MEAN CORPUSCULAR HGB CONC 31 g/dL (32.3-35.6); MEAN CORPUSCULAR VOLUME 72.7 fL (75.5-95.3); MONOCYTES # (AUTO) 0.8 K/uL (2.0-10.0); MONOCYTES % (AUTO) 10.5 % (0.0-11.0); NEUTROPHILS # (AUTO) 4.9 K/uL (1.8-8.9); PLATELET COUNT (AUTO) 335 K/uL (179-408); RED BLOOD CELL COUNT(AUTO) 4.35 MIL/uL (3.63-4.92); WHITE BLOOD COUNT (AUTO) 7.6 K/uL (3.8-11.8)
[2017-10-02 06:33] LABS: CREATININE 0.7 mg/dL (0.6-1.3); POTASSIUM 4.1 mmol/L (3.5-5.1)
[2017-10-02] MEDS: BLOOD SUGAR DIAGNOSTIC 1 EACH STRIP VI SCH ×4 (07:21→20:38)
[2017-10-02 07:28] LABS: EOSINOPHILS % (MANUAL) 7 % (0-8); LYMPHOCYTES % (MANUAL) 14 % (20-40); MONOCYTES % (MANUAL) 9 % (2-10); NEUTROPHILS % (MANUAL) 70 % (42-75)
[2017-10-02] MEDS: SERTRALINE HCL 50 MG TABLET PO SCH (08:03)
[2017-10-02] MEDS: ALLOPURINOL 300 MG TABLET PO SCH (08:03)
[2017-10-02] MEDS: LISINOPRIL 5 MG TABLET PO SCH (08:04)
[2017-10-02] MEDS: SPIRONOLACTONE 25 MG TABLET PO SCH (08:04)
[2017-10-02] MEDS: CARVEDILOL 6.25 MG TABLET PO SCH ×2 (08:04→17:15)
[2017-10-02] MEDS: FUROSEMIDE 20 MG/2 ML VIAL IV SCH (08:07)
--- NOTE | 2017-10-02 11:00 | NUR ---
PT SEEN BY GASTROLOGIST NEW ORDERS RECEIVED AND NOTED.
[2017-10-02] MEDS ORDERED: GOLYTELY 4000 ML BOTTLE PO ONE (11:15)
[2017-10-02] MEDS ORDERED: MAGNESIUM CITRATE 296 ML BOTTLE PO ONE (11:15)
[2017-10-02] MEDS ORDERED: BISACODYL 5 MG TABLET.DR PO ONE (11:15)
[2017-10-02 11:28] VITALS: BP 111/66
[2017-10-02] MEDS: INSULIN REGULAR, HUMAN 300 UNIT/3 ML VIAL SQ PRN ×2 (11:32→20:47)
[2017-10-02 12:09] LABS: CANCER ANTIGEN 15-3 18.7 U/mL (0.0-25.0)
[2017-10-02] MEDS: CYANOCOBALAMIN 1000 MCG/ML VIAL IM SCH (12:58)
[2017-10-02 15:46] VITALS: BP 107/53
[2017-10-02] MEDS: SOD FERRIC GLUC COMPLX/SUCROSE 125 MG in IV NORMAL SALINE 100 ML IV SCH (15:49)
--- NOTE | 2017-10-02 19:30 | NUR ---
Received patient laying comfortably in bed. No acute distress noted. Patient is speaking but understands little Lithuanian. She is able to make needs know. Patient is ambulatory. Instructed patient to continue to drink the golytely 4 L. Room is kept clutter free. Bed is in low and locked position. Safety initiated. Call light within reach. Will continue to monitor.
[2017-10-02 20:00] VITALS: BP 108/58
[2017-10-02] MEDS: TRAZODONE 50 MG TABLET PO SCH (20:36)
[2017-10-02] MEDS ORDERED: IV D5W-0.45% NS +20 KCL 1,000 ML IV ONE (22:00)
[2017-10-03] MEDS: LEVOFLOXACIN 500 MG TABLET PO SCH (00:07)
[2017-10-03 04:00] VITALS: BP 129/61
--- NOTE | 2017-10-03 05:00 | NUR ---
Tap water enema administered. Tolerated well.
--- NOTE | 2017-10-03 06:10 | NUR ---
Patient slept intermittently t/o shift. IVF infusing. Multiple bowel movements d/t golytely. ambulates to the restroom herself. Room is kept clutter free. Bed is in low and locked position. Safety and comfort measures maintained t/o shift. Vital signs stable. All meds given as ordered. All needs met.
[2017-10-03] MEDS: BLOOD SUGAR DIAGNOSTIC 1 EACH STRIP VI SCH ×2 (06:39→11:30)
[2017-10-03] MEDS: PANTOPRAZOLE SODIUM 40 MG TABLET.DR PO SCH (07:00)
--- NOTE | 2017-10-03 07:00 | NUR ---
RECEIVED PATIENT ON BED, A AND O X4, LIBERIAN SPEAKING ONLY BUT CAN UNDERSTAND SOME UPPER SORBIAN, AT BEDSIDE TO TRANSLATE. NO ACUTE DISTRESS NOTED, RESPIRATIONS ARE EVEN AND UNLABORED. ABDOMEN SOFT AND PALPABLE. IV ACCESS ON THE LEFT AC # 22 RUNNING D5 1/2 NS + 20 MEQ KCL AT 50 CC/HR, NO SIGNS OF INFILTRATION ON THE IV SITE. NO ACTIVITY ON THE RIGHT ARM (BLOOD DRAWS BLOOD PRESSURE AND THE LIKE) FOR EGD AND COLONOSCOPY IN AM, COLON PREP DONE, BUT NEED TO ADMINISTER ONE MORE TAP WATER ENEMA, SINCE PATIENT NOT CLEAR YET. ALL COMFORT MEASURES PROVIDED, CALL LIGHT WITHIN REACH WILL CONTINUE TO MONITOR CLOSELY.
--- NOTE | 2017-10-03 07:01 | NUR ---
Spoke to Dr. Parra, made him aware of the yellow brownish sediments in stool. Not clear yet despite 4L of golytely, tap water enema, and mag citrate. MD instructed to have AM nurse do another tap water enema within the shift. Will continue to monitor.
[2017-10-03] MEDS: CARVEDILOL 6.25 MG TABLET PO SCH (08:00)
--- NOTE | 2017-10-03 08:00 | NUR ---
Another tap water enema administered, patient 's bowels are clear. Well tolerated. will continue to monitor.
[2017-10-03] MEDS: SPIRONOLACTONE 25 MG TABLET PO SCH (08:53)
[2017-10-03] MEDS: LISINOPRIL 5 MG TABLET PO SCH (08:54)
[2017-10-03] MEDS: SERTRALINE HCL 50 MG TABLET PO SCH (08:56)
[2017-10-03] MEDS: ALLOPURINOL 300 MG TABLET PO SCH (08:56)
[2017-10-03] MEDS: CYANOCOBALAMIN 1000 MCG/ML VIAL IM SCH (08:57)
[2017-10-03] MEDS: FUROSEMIDE 20 MG/2 ML VIAL IV SCH (08:57)
--- NOTE | 2017-10-03 09:20 | NUR ---
computer lab aide came to draw blood, could not get any blood, blood that was drawn clotted because it took too long to obtain specimen.
--- NOTE | 2017-10-03 09:22 | NUR ---
Did not administer any PO meds due to patient being NPO for procedure, blood pressure WNL 116/59, will continue to monitor
--- NOTE | 2017-10-03 09:36 | NUR ---
Patient taken down to GI lab for procedure, by Alyce KIM and Liane KIM, also accompanied by daughter. Patient in stable condition. Vital signs WNL.
--- NOTE | 2017-10-03 11:00 | NUR ---
returned from GI lab accompanied by OR nurses, in stable condition. On O2 @ 2lpm via NC, with new orders noted and carried out. will continue to monitor closely
[2017-10-03] MEDS ORDERED: IV NORMAL SALINE 1,000 ML IV ONE (11:15)
[2017-10-03] MEDS: INSULIN REGULAR, HUMAN 300 UNIT/3 ML VIAL SQ PRN (11:34)
[2017-10-03 11:41] VITALS: BP 124/62
[2017-10-03] MEDS ORDERED: LEVO500T2 PO (12:19)
[2017-10-03] MEDS ORDERED: FERR142T6 PO (12:19)
[2017-10-03] MEDS ORDERED: LISI-607 PO (12:19)
[2017-10-03] MEDS ORDERED: ASPI-612 PO (12:19)
[2017-10-03] MEDS ORDERED: POTA-10 PO (12:19)
--- NOTE | 2017-10-03 13:27 | NUR ---
SEEN BY GIANNA, INSTRUCTIONS FOR DISCHARGE [facility] RISKS WITH FLYING TO [facility], EXPLAINED TO PATIENT'S DAUGHTER RADHA LOPEZ.
--- NOTE | 2017-10-03 13:29 | NUR ---
PATIENT NOTED WITH IV CANNULA OUT, IV CATHETER STILL INTACT, REINSERTED IV SITE ON THE LEFT AC # 22, WITH GOOD VENOUS RETURN NOTED, OBSERVING ASEPTIC TECHNIQUE. PROCEDURE WELL TOLERATED BY PATIENT. WILL CONTINUE TO MONITOR CLOSELY.
[2017-10-03] MEDS: SOD FERRIC GLUC COMPLX/SUCROSE 125 MG in IV NORMAL SALINE 100 ML IV SCH (14:57)
[2017-10-03 15:22] LABS: BASOPHILS # (AUTO) 0.1 K/uL (0.0-8.0); BASOPHILS % (AUTO) 1.1 % (0.0-2.0); EOSINOPHILS # (AUTO) 0.3 K/uL (0.0-0.7); HEMATOCRIT 34.5 % (31.2-41.9); HEMOGLOBIN 10.8 g/dL (10.9-14.3); LYMPHOCYTES # (AUTO) 1.1 K/uL (20.0-40.0); LYMPHOCYTES % (AUTO) 15.4 % (20.5-51.5); MEAN CORPUSCULAR HEMOGLOBIN 22.8 uug (24.7-32.8); MEAN CORPUSCULAR HGB CONC 31 g/dL (32.3-35.6); MEAN CORPUSCULAR VOLUME 72.7 fL (75.5-95.3); MONOCYTES % (AUTO) 14.3 % (0.0-11.0); NEUTROPHILS # (AUTO) 4.4 K/uL (1.8-8.9); NEUTROPHILS % (AUTO) 64.2 % (38.5-71.5); PLATELET COUNT (AUTO) 362 K/uL (179-408); RED BLOOD CELL COUNT(AUTO) 4.75 MIL/uL (3.63-4.92); WHITE BLOOD COUNT (AUTO) 6.8 K/uL (3.8-11.8)
[2017-10-03 15:28] LABS: CREATININE 0.7 mg/dL (0.6-1.3); POTASSIUM 3.3 mmol/L (3.5-5.1)
[2017-10-03 16:01] VITALS: BP 110/58
[2017-10-03 16:27] LABS: NEUTROPHILS % (MANUAL) 59 % (42-75)
[2017-10-03 16:28] LABS: EOSINOPHILS % (MANUAL) 7 % (0-8); LYMPHOCYTES % (MANUAL) 19 % (20-40); MONOCYTES % (MANUAL) 15 % (2-10)
--- NOTE | 2017-10-03 16:50 | NUR ---
patient discharged in stable condition, discharge instructions and papers given and explained to who verbalized understanding. Patient taken down on wheelchair, and left via private car with .
[2017-10-03] MEDS ORDERED: IV NORMAL SALINE 1000 ML BAG IV ONE (16:56)
[2017-10-03] MEDS ORDERED: PROPOFOL 200 MG/20 ML BOTTLE IV ONE (16:56)
[2017-10-05 05:06] LABS: ALBUMIN 3.1 g/dL (2.9-4.4); ALPHA-1-GLOBULIN 0.3 g/dL (0.0-0.4); ALPHA-2-GLOBULIN 0.7 g/dL (0.4-1.0); M-SPIKE Not Observed g/dL (Not Observed)
[2017-10-05 14:07] LABS: *HEMOGLOBIN A 98.4 % (96.4-98.8); *HEMOGLOBIN A2 1.6 % (1.8-3.2)
[2017-10-06 13:15] LABS: CANCER AG, 125 45.3 U/mL (0.0-38.1)
== END 2017-10-03 16:57 | disposition home or self-care (01) | DRG 377 ==
LOC: ER 20:13 → TELE 23:58 → MED 09-29 16:05
PROVIDERS: ADMIT Internal Medicine; ATTEND Internal Medicine
PROC: 30233N1 Transfusion of Nonautologous Red Blood Cells into Peripheral Vein, Percutaneous Approach (ICD-10-PCS; principal; 2017-09-29)
PROC: 0DB68ZX Excision of Stomach, Via Natural or Artificial Opening Endoscopic, Diagnostic (ICD-10-PCS; 2017-10-03)
PROC: 0DBM8ZX Excision of Descending Colon, Via Natural or Artificial Opening Endoscopic, Diagnostic (ICD-10-PCS; 2017-10-03)
PROC: 0DB98ZX Excision of Duodenum, Via Natural or Artificial Opening Endoscopic, Diagnostic (ICD-10-PCS; 2017-10-03 09:55)
DX: K29.71 Gastritis, unspecified, with bleeding (principal); I50.23 Acute on chronic systolic (congestive) heart failure; D68.59 Other primary thrombophilia; D62 Acute posthemorrhagic anemia; I27.20 Pulmonary hypertension, unspecified; E87.1 Hypo-osmolality and hyponatremia; E11.65 Type 2 diabetes mellitus with hyperglycemia; I42.9 Cardiomyopathy, unspecified; N39.0 Urinary tract infection, site not specified; K29.81 Duodenitis with bleeding; E88.09 Other disorders of plasma-protein metabolism, not elsewhere classified; I11.0 Hypertensive heart disease with heart failure; I34.0 Nonrheumatic mitral (valve) insufficiency; Z90.11 Acquired absence of right breast and nipple; Z85.3 Personal history of malignant neoplasm of breast; Z92.21 Personal history of antineoplastic chemotherapy; Z92.3 Personal history of irradiation; B95.4 Other streptococcus as the cause of diseases classified elsewhere; B95.2 Enterococcus as the cause of diseases classified elsewhere; D63.8 Anemia in other chronic diseases classified elsewhere; K52.9 Noninfective gastroenteritis and colitis, unspecified; F32.9 Major depressive disorder, single episode, unspecified; I08.1 Rheumatic disorders of both mitral and tricuspid valves; K44.9 Diaphragmatic hernia without obstruction or gangrene; Z74.09 Other reduced mobility
CPT/HCPCS: 36415; 43235; 70030-TC; 71045; 71250; 82378; 82746; 82784; 83010; 83021; 83550; 83615; 83735; 84100; 84155; 84165; 84443; 85025; 85660; 85730; 86300; 86301; 86334; 86625; 86850; 86880; 86900; 86901; 86920; 87046; 87077; 87086; 87177; 88342; 93005; A4217; A4663; C9113; J0696; J1815; J1940; J2916; J3420; J3490; J7030; J7040; J7050; J7060; P9016-BL; P9021